=== PATIENT | female | born 1965 | race Caucasian/White ===

== ENCOUNTER → 2017-03-01 | Outpatient (REF) | payer OTHER ==
[~2017-03-01] MED LIST: CHIL1CHW5 PO; LIPI20TA PO; LISI-538 PO; LOVE1INJ SC; LOW-TAB2 PO; PERCOCET PO
== END ==
LOC: M SFHCWAGY 09:54
PROVIDERS: ATTEND Nurse Practitioner Women's Health
DX: Z12.4 Encounter for screening for malignant neoplasm of cervix (principal)

== ENCOUNTER → 2017-03-01 | Outpatient (CLI) | payer OTHER ==
--- NOTE | 2017-03-01 11:59 | REPMRS ---
Patient History The patient states she had a clinical breast exam in Patient had first child at age 31. Family history of colorectal cancer in maternal aunt at age 50 or over. Benign stereotatic breast biopsy of the right breast, 2002. Took hormonal contraceptives for 22 years. Digital Woman Screen Mammo: March 01, 2017 - Exam #: [id number] Bilateral CC and MLO view(s) were taken. Technologist: Ana Prasad, Technologist Prior study comparison: February 16, 2016, digital woman screen mammo performed at [facility]. February 10, 2015, digital woman screen mammo performed at [facility]. January 10, 2014, digital woman screen mammo performed at [facility]. FINDINGS: There are scattered fibroglandular densities. There has been no change in the appearance of the mammogram from the prior studies. There is a mild amount of scattered fibroglandular density which is fairly symmetric. There is no interval development of dominant mass, architectural distortion, or clustered microcalcification suggestive of malignancy. ASSESSMENT: BI-RADS/ACR category 1 mammogram. Negative. Recommendation Routine screening mammogram in 1 year (for women over age 40). This mammogram was interpreted with the aid of an FDA-approved computer-aided dectection system. Electronically Signed By: Rivera Jauregui MD 03/01/17 [id number]
== END ==
LOC: M WHC 09:43
PROVIDERS: ATTEND Nurse Practitioner Women's Health
DX: Z12.31 Encounter for screening mammogram for malignant neoplasm of breast (principal)

== ENCOUNTER → 2018-03-22 | Outpatient (CLI) | payer OTHER | LOC: M WHC 15:11 | DX: Z12.31 Encounter for screening mammogram for malignant neoplasm of breast (principal) | CPT/HCPCS: 77067 ==

== ENCOUNTER 2018-04-27 22:00 | Emergency (ER) | payer OTHER ==
[2018-04-27] MEDS: TETANUS IMMUNE GLOBULIN (HUMAN) 250 UNITS/ML SYRINGE (J1670)(90389) IM (23:15)
[2018-04-27] MEDS: TETANUS/DIPHTHERIA TOX ADSORB ADULT 0.5ML SYR/VIAL (90714) IM (23:15)
[2018-04-27] MEDS: LIDOCAINE W/EPINEPHRINE 1% 20ML VIAL SC (23:15)
== END 2018-04-28 00:11 | disposition home or self-care (01) ==
LOC: M ED 04-28 00:11
DX: S51.851A Open bite of right forearm, initial encounter (principal); W54.0XXA Bitten by dog, initial encounter; Y92.410 Unspecified street and highway as the place of occurrence of the external cause; I10 Essential (primary) hypertension; E78.5 Hyperlipidemia, unspecified; Z86.73 Personal history of transient ischemic attack (TIA), and cerebral infarction without residual deficits
CPT/HCPCS: 90714

== ENCOUNTER 2019-06-05 09:49 | Day surgery (SDC) | payer OTHER ==
[~2019-06-05] VITALS: Ht 172.7 cm; Wt 66.7 kg
[~2019-06-05 09:49] MED LIST changes: +ASPI-286 PO; +AUGM875T28 PO; -CHIL1CHW5 PO; +LOW-1TAB2 PO; -LOW-TAB2 PO; +LR 1,000 ML IV ONE; +SERO50TA PO; +ceFAZolin SOD 2 GM in IV 1 EA IV ONE; +effexor
[2019-06-05] MEDS ORDERED: LIDOCAINE 2% INJ 100 MG/5 ML SDV (FOR ANES.) As Ordered ONE (10:09)
[2019-06-05] MEDS ORDERED: ONDANSETRON 4MG/2ML VIAL (J2405) As Ordered ONE (10:09)
[2019-06-05] MEDS ORDERED: dexameTHASONE 4 MG/ML 1ML VIAL (J1100) As Ordered ONE (10:09)
[2019-06-05] MEDS ORDERED: PROPOFOL 200 MG/20 ML VIAL As Ordered ONE ×4 (10:09→14:18)
[2019-06-05] MEDS ORDERED: KETOROLAC 60 MG/2 ML VIAL (J1885) As Ordered ONE (10:10)
[2019-06-05] MEDS ORDERED: MIDAZOLAM INJ 2 MG/2 ML VIAL (J2250) As Ordered ONE (10:14)
[2019-06-05] MEDS ORDERED: fentaNYL 100 MCG/2 ML INJECTION (J3010) As Ordered ONE (10:14)
[2019-06-05] MEDS ORDERED: BUPIVACAINE HCL 0.5% 30 ML VIAL As Ordered ONE (12:22)
[2019-06-05] MEDS ORDERED: LIDOCAINE 1% MDV 20ML VIAL As Ordered ONE (12:22)
[2019-06-05] MEDS ORDERED: HYDR-3713 PO (13:21)
[2019-06-05 13:40] VITALS: BP 134/90
[2019-06-05] MEDS ORDERED: diphenhydrAMINE INJ 50MG/ML VIAL (J1200) As Ordered ONE (14:06)
[2019-06-05] MEDS ORDERED: METOCLOPRAMIDE INJ 10MG/2ML VIAL (J2765) IV PRN (14:15)
[2019-06-05] MEDS ORDERED: oxyCODONE 5MG TAB PO PRN (14:15)
[2019-06-05] MEDS ORDERED: LR 1,000 ML IV SCH (14:15)
[2019-06-05] MEDS ORDERED: fentaNYL 100 MCG/2 ML INJECTION (J3010) IV PRN (14:15)
[2019-06-05] MEDS ORDERED: ONDANSETRON 4MG/2ML VIAL (J2405) IV PRN (14:15)
--- NOTE | 2019-06-05 14:15 | RO ---
DATE OF PROCEDURE: 06/05/2019 PREPROCEDURE DIAGNOSIS: Right foot bunion and second metatarsal deformity. POSTPROCEDURE DIAGNOSIS: Right foot bunion and second metatarsal deformity. PROCEDURE: Right foot bunionectomy with first metatarsal osteotomy and second metatarsal shortening osteotomy. SURGEON: Dr. Lam Anderson PRIMARY SPECIAL EDUCATOR: None. ANESTHESIA: Monitored anesthesia care. Preoperative injection of 20 mL of 1:1 mixture of 1% lidocaine plain and 1/2% Marcaine plain. ESTIMATED BLOOD LOSS: Minimal. MATERIALS: Arthrex 2.5 and 3.5 headless compression screws, #3-0 and #4-0 Vicryl, #4-0 nylon. INJECTABLES: None. COMPLICATIONS: None. CONDITION: Stable. DESCRIPTION OF PROCEDURE: Kathie Miranda is a 53-year-old female who presents to [facility] with complaints of painful bunion and second toe deformity on her right foot. She presents today for surgical correction. The patient site and side were identified and marked in preoperative holding area. Consent was reviewed and obtained. All rhe risks, complications and alternatives to the procedure were explained to the patient in detail and all questions were answered. The patient was brought to the operating room and placed on the operating room in supine position. Monitored anesthesia care was delivered by the anesthesia department. Preoperative injection of 20 mL of 1:1 mixture of 1% lidocaine plain and 0.25% Marcaine plain were injected to the right foot. The right foot was prepped and draped in normal sterile fashion. A tourniquet was applied to the right ankle and inflated at 225 mmHg. A dorsal incision was drawn over the first metatarsal and carried through with #15 blade. Dissection was carried down and first metatarsal phalangeal joint capsule was identified. T capsulotomy was performed exposing the metatarsal head. Following this, a lateral release was performed releasing the lateral capsule, adductor tendons and sesamoidal ligament. McGlamry elevator was used to release the plantar structures. Following, the medial eminence was resected from the first metatarsal head using sagittal saw. Then osteotomy was performed of the metatarsal head translating it laterally. This fixated with a 3.5 headless compression screw. Remaining bone ledge was resected with sagittal saw and smoothed with a rasp. The site was irrigated with normal saline. A small wedge of capsule was removed from the medial capsule and then capsular repair was performed with #3-0 Vicryl and subcutaneous was closed with #4-0 Vicryl and skin closure with #4-0 nylon. Next attention was paid to the second toe. Dorsal incision was made over the second metatarsal phalangeal joint and carried through with #15 blade. Dissection was carried out until the joint capsule was identified. A linear capsulotomy was performed exposing the metatarsal head. The collateral ligaments were released. McGlamry elevator was used to release the plantar structures. Following this, an osteotomy was performed in the metatarsal head. Using sagittal saw, translating it approximately 4 mm. Bone wedge was resected with rongeur and smoothed with a rasp. Then this was fixated with an Arthrex 2.5 headless compression screw. The site was irrigated with normal saline. Capsular repair was performed with #3-0 Vicryl, subcutaneous closure with #4-0 Vicryl and skin closure with #4-0 nylon. Sterile dressings were applied. Tourniquet was deflated. The patient was brought to the postanesthesia care unit (PACU) with vital signs stable and neurovascular status intact. She will be partial weight bearing to the right foot. She will follow up in the office in two days.
== END 2019-06-05 14:04 | disposition home or self-care (01) ==
LOC: M SDC 09:49
PROVIDERS: ATTEND Podiatrist Foot & Ankle Surgery
DX: M21.611 Bunion of right foot (principal); M21.6X1 Other acquired deformities of right foot; I10 Essential (primary) hypertension; E78.5 Hyperlipidemia, unspecified; F41.9 Anxiety disorder, unspecified; F32.9 Major depressive disorder, single episode, unspecified; Z86.73 Personal history of transient ischemic attack (TIA), and cerebral infarction without residual deficits; Z79.82 Long term (current) use of aspirin; Z79.899 Other long term (current) drug therapy
CPT/HCPCS: 28296; 28308; 88300; 97116; C1713; J0690; J1100; J1200; J1885; J2250; J2405; J3010

== ENCOUNTER 2020-03-19 08:11 | Day surgery (SDC) | payer OTHER ==
[~2020-03-19] VITALS: Ht 165.1 cm; Wt 65.3 kg
[~2020-03-19 08:11] MED LIST changes: +HYDR-3713 PO; +LIDOCAINE 2% 100MG/5ML SDV (FOR ANES.) As Ordered ONE; -LR 1,000 ML IV ONE; +NS 1,000 ML IV ONE; -ceFAZolin SOD 2 GM in IV 1 EA IV ONE; +propofoL 200 MG/20 ML VIAL As Ordered ONE
--- NOTE | 2020-03-19 09:19 | ROOR ---
Patient Name: Kathie Miranda Procedure Date: 03/19/2020 9:04 AM Date of : 1965 Age: 54 Room: [facility] Gender: Female Note Status: Finalized Procedure: Colonoscopy Indications: Screening for colorectal malignant neoplasm Providers: Santiago Solomon Jr, MD Referring MD: Tom Castaneda MD Requesting Provider: Medicines: Propofol per Anesthesia Complications: No immediate complications. Procedure: Pre-Anesthesia Assessment: - Prior to the procedure, a History and Physical was performed, and patient medications and allergies were reviewed. The patient is competent. The risks and benefits of the procedure and the sedation options and risks were discussed with the patient. All questions were answered and informed consent was obtained. Patient identification and proposed procedure were verified by the physician and the nurse in the pre-procedure area and in the procedure room. Mental Status Examination: alert and oriented. Airway Examination: normal oropharyngeal airway and neck mobility. Respiratory Examination: clear to auscultation. CV Examination: normal. ASA Grade Assessment: II - A patient with mild systemic disease. After reviewing the risks and benefits, the patient was deemed in satisfactory condition to undergo the procedure. The anesthesia plan was to use moderate sedation / analgesia (conscious sedation). Immediately prior to administration of medications, the patient was re-assessed for adequacy to receive sedatives. The heart rate, respiratory rate, oxygen saturations, blood pressure, adequacy of pulmonary ventilation, and response to care were monitored throughout the procedure. The physical status of the patient was re-assessed after the procedure. The Colonoscope was introduced through the anus and advanced to the cecum, identified by appendiceal orifice and ileocecal valve. The colonoscopy was performed without difficulty. The patient tolerated the procedure well. The quality of the bowel preparation was adequate. Findings: The rectum, recto-sigmoid colon, sigmoid colon, descending colon, transverse colon, ascending colon, cecum, appendiceal orifice and ileocecal valve appeared normal. Non-bleeding internal hemorrhoids were found during endoscopy. The hemorrhoids were medium-sized and Grade II (internal hemorrhoids that prolapse but reduce spontaneously). Impression: - The rectum, recto-sigmoid colon, sigmoid colon, descending colon, transverse colon, ascending colon, cecum, appendiceal orifice and ileocecal valve are normal. - Non-bleeding internal hemorrhoids. - No specimens collected. Recommendation: - Repeat colonoscopy in 10 years for screening purposes. Santiago Solomon MD Santiago Solomon Jr, MD 03/19/2020 9:19:11 AM Electronically signed by Santiago Solomon Jr, MD Number of Addenda: 0 Note Initiated On: 03/19/2020 9:04 AM Estimated Blood Loss: Estimated blood loss: none.
[2020-03-19 09:40] VITALS: BP 143/91
== END 2020-03-19 09:54 | disposition home or self-care (01) ==
LOC: M OPP 08:11
PROVIDERS: ATTEND Surgery
DX: Z12.11 Encounter for screening for malignant neoplasm of colon (principal); K64.1 Second degree hemorrhoids; Z86.73 Personal history of transient ischemic attack (TIA), and cerebral infarction without residual deficits; Z79.899 Other long term (current) drug therapy; Z79.82 Long term (current) use of aspirin

== ENCOUNTER → 2022-05-13 | Outpatient (REF) | payer OTHER ==
[~2022-05-13] MED LIST changes: -ASPI-286 PO; -LIDOCAINE 2% 100MG/5ML SDV (FOR ANES.) As Ordered ONE; -LISI-538 PO; +LISI20TA33 PO; -NS 1,000 ML IV ONE; +SM C81CH2 PO; -propofoL 200 MG/20 ML VIAL As Ordered ONE
== END ==
LOC: EEVIPCON 21:02 → M LAB REF 21:02
PROVIDERS: ATTEND Internal Medicine
DX: R30.0 Dysuria (principal)

== ENCOUNTER → 2022-10-14 | Outpatient (REF) | payer OTHER | LOC: M PLALAB 10:53 | PROVIDERS: ATTEND Nurse Practitioner Family | DX: Z12.4 Encounter for screening for malignant neoplasm of cervix (principal) | CPT/HCPCS: 87624; G0123 ==

== ENCOUNTER → 2022-10-14 | Outpatient (CLI) | payer OTHER | LOC: M WHC 07:50 | PROVIDERS: ATTEND Nurse Practitioner Family | DX: Z12.31 Encounter for screening mammogram for malignant neoplasm of breast (principal) ==

== ENCOUNTER → 2022-12-15 | Outpatient (CLI) | payer OTHER | LOC: M WHC 15:18 | PROVIDERS: ATTEND Nurse Practitioner Family | DX: R10.2 Pelvic and perineal pain (principal); D25.9 Leiomyoma of uterus, unspecified ==

== ENCOUNTER → 2023-01-19 | Outpatient (REF) | payer OTHER ==
[2023-01-20 12:39] LABS: GC DNA AMPLIFICATION NEGATIVE (NEGATIVE)
== END ==
LOC: M SFHCWAGY 10:07
PROVIDERS: ATTEND Nurse Practitioner Family
DX: Z11.3 Encounter for screening for infections with a predominantly sexual mode of transmission (principal)

== ENCOUNTER → 2023-05-01 | Outpatient (CLI) | payer OTHER ==
[2023-05-01 19:32] LABS: BASO % 0.3 % (0.0-1.0); EOS # 0.1 10^3/uL (0.0-0.5); EOS % 1.3 % (0.0-3.0); HEMOGLOBIN 12.7 g/dl (12.0-15.5); LYMPH % 21.6 % (24.0-44.0); MEAN CORPUSCULAR HEMOGLOBIN 29.5 pg (27.0-33.0); MEAN CORPUSCULAR HGB CONC 32.6 g/dl (32.0-36.5); MEAN CORPUSCULAR VOLUME 90.5 fl (80.0-96.0); MONO # 0.5 10^3/uL (0.0-0.8); MONO % 5.7 % (2.0-8.0); NEUTROPHILS # 6.5 10^3/uL (1.5-8.5); NEUTROPHILS % 70.8 % (36.0-66.0); PLATELET COUNT, AUTOMATED 287 10^3/uL (150-450); RED BLOOD COUNT 4.31 10^6/uL (4.00-5.40); WHITE BLOOD COUNT 9.1 10^3/uL (4.0-10.0)
[2023-05-01 19:47] LABS: LIPASE 36 U/L (12-53)
[2023-05-01 19:49] LABS: ALBUMIN 4.2 G/DL (3.2-5.2); ALKALINE PHOSPHATASE 68 U/L (46-116); ALT/SGPT 11 U/L (7.0-40); AST/SGOT 15 U/L (<34); BILIRUBIN,TOTAL 0.3 MG/DL (0.3-1.2); BLOOD UREA NITROGEN 12 MG/DL (9-23); CALCIUM LEVEL 9.3 MG/DL (8.5-10.1); CARBON DIOXIDE LEVEL 31 MMOL/L (20-31); CHLORIDE LEVEL 102 MMOL/L (98-107); CREATININE FOR GFR 0.78 MG/DL (0.55-1.30); GLOMERULAR FILTRATION RATE > 60.0 (>51); GLUCOSE, FASTING 82 MG/DL (60-100); POTASSIUM SERUM 3.8 MMOL/L (3.5-5.1); SODIUM LEVEL 139 MMOL/L (136-145); TOTAL PROTEIN 7.9 G/DL (5.7-8.2)
== END ==
LOC: M WUC 15:48
PROVIDERS: ATTEND Student in an Organized Health Care Education/Training Program
DX: R10.10 Upper abdominal pain, unspecified (principal)

== ENCOUNTER → 2024-01-04 | Outpatient (CLI) | payer OTHER ==
[2024-01-04 11:10] LABS: APPEARANCE, URINE CLEAR (CLEAR); BACTERIA, URINE AUTO NEGATIVE (NEGATIVE); BILIRUBIN, URINE AUTO NEGATIVE (NEGATIVE); BLOOD, URINE BLOOD NEGATIVE (NEGATIVE); COLOR, URINE YELLOW (YELLOW); GLUCOSE, URINE (UA) AUTO NEGATIVE (NEGATIVE); KETONE, URINE AUTO NEGATIVE (NEGATIVE); LEUKOCYTE ESTERASE, URINE AUTO TRACE (NEGATIVE); MUCUS, URINE SMALL (NEGATIVE); NITRITE, URINE AUTO NEGATIVE (NEGATIVE); PROTEIN, URINE AUTO NEGATIVE (NEGATIVE); RBC, URINE AUTO 1 /HPF (0-3); SPECIFIC GRAVITY URINE AUTO 1.017 (1.002-1.035); SQUAMOUS EPITHELIAL CELL UR AU 0 /HPF (0-6); UROBILINOGEN, URINE AUTO 0.2 mg/dL (0.0-2.0); WBC, URINE AUTO 4 /HPF (0-3)
[2024-01-04 11:19] LABS: BASO % 0.7 % (0.0-1.0); EOS # 0.2 10^3/uL (0.0-0.5); EOS % 5.7 % (0.0-3.0); HEMATOCRIT 38.5 % (36.0-47.0); HEMOGLOBIN 12.6 g/dl (12.0-15.5); LYMPH # 1.7 10^3/uL (1.5-5.0); LYMPH % 43.4 % (24.0-44.0); MEAN CORPUSCULAR HEMOGLOBIN 29.9 pg (27.0-33.0); MEAN CORPUSCULAR HGB CONC 32.7 g/dl (32.0-36.5); MEAN CORPUSCULAR VOLUME 91.2 fl (80.0-96.0); MONO # 0.4 10^3/uL (0.0-0.8); MONO % 10.7 % (2.0-8.0); NEUTROPHILS # 1.6 10^3/uL (1.5-8.5); NEUTROPHILS % 39.5 % (36.0-66.0); PLATELET COUNT, AUTOMATED 218 10^3/uL (150-450); RED BLOOD COUNT 4.22 10^6/uL (4.00-5.40)
[2024-01-04 11:21] LABS: ALKALINE PHOSPHATASE 65 U/L (46-116); ALT/SGPT 18 U/L (7.0-40); AST/SGOT 22 U/L (<34); BILIRUBIN,TOTAL 0.6 MG/DL (0.3-1.2); BLOOD UREA NITROGEN 16 MG/DL (9-23); CALCIUM LEVEL 9.2 MG/DL (8.5-10.1); CARBON DIOXIDE LEVEL 30 MMOL/L (20-31); CHLORIDE LEVEL 104 MMOL/L (98-107); CREATININE FOR GFR 0.84 MG/DL (0.55-1.30); GLOMERULAR FILTRATION RATE > 60.0 (>51); GLUCOSE, FASTING 91 MG/DL (60-100); POTASSIUM SERUM 3.5 MMOL/L (3.5-5.1); SODIUM LEVEL 141 MMOL/L (136-145); TOTAL PROTEIN 6.8 G/DL (5.7-8.2)
[2024-01-05 23:07] LABS: TISSUE TRANSGLUTAMINASE IgA <2 U/mL (0-3); TISSUE TRANSGLUTAMINASE IgG 3 U/mL (0-5)
== END ==
LOC: M WUC 07:34
PROVIDERS: ATTEND Registered Nurse
DX: R14.0 Abdominal distension (gaseous) (principal); N39.46 Mixed incontinence

== ENCOUNTER → 2024-02-08 | Outpatient (CLI) | payer OTHER | LOC: M WHC 15:21 | PROVIDERS: ATTEND Nurse Practitioner Family | DX: Z12.31 Encounter for screening mammogram for malignant neoplasm of breast (principal); R92.323 Mammographic fibroglandular density, bilateral breasts ==

== ENCOUNTER → 2024-05-28 | Outpatient (CLI) | payer OTHER ==
[~2024-05-28] MED LIST changes: +E-Z-GAS II EFFERVESCENT PACKET (SODIUM BICARB./CITRIC ACID/SIMETHICONE) As Ordered ONE; +E-Z-HD 98% w/w 340GM SUSP BTL As Ordered ONE; +E-Z-PAQUE 96% w/w SUSP 176GM BTL As Ordered ONE
== END ==
LOC: M RAD 09:27
PROVIDERS: ATTEND Registered Nurse
DX: R10.12 Left upper quadrant pain (principal)

== ENCOUNTER → 2024-08-13 | Outpatient (CLI) | payer OTHER ==
[~2024-08-13] MED LIST changes: -E-Z-GAS II EFFERVESCENT PACKET (SODIUM BICARB./CITRIC ACID/SIMETHICONE) As Ordered ONE; -E-Z-HD 98% w/w 340GM SUSP BTL As Ordered ONE; -E-Z-PAQUE 96% w/w SUSP 176GM BTL As Ordered ONE
== END ==
LOC: M RAD 08:29
PROVIDERS: ATTEND Registered Nurse
DX: R10.12 Left upper quadrant pain (principal)

== ENCOUNTER → 2024-11-29 | Outpatient (CLI) | payer OTHER ==
[2024-11-29 14:49] LABS: BASO % 0.8 % (0.0-1.0); EOS # 0.2 10^3/uL (0.0-0.5); EOS % 5.8 % (0.0-3.0); HEMATOCRIT 39.3 % (36.0-47.0); HEMOGLOBIN 12.8 g/dl (12.0-15.5); LYMPH # 1.4 10^3/uL (1.5-5.0); LYMPH % 38.9 % (24.0-44.0); MEAN CORPUSCULAR HGB CONC 32.6 g/dl (32.0-36.5); MONO # 0.4 10^3/uL (0.0-0.8); MONO % 10.4 % (2.0-8.0); NEUTROPHILS # 1.6 10^3/uL (1.5-8.5); NEUTROPHILS % 44.1 % (36.0-66.0); PLATELET COUNT, AUTOMATED 225 10^3/uL (150-450); RED BLOOD COUNT 4.27 10^6/uL (4.00-5.40); WHITE BLOOD COUNT 3.7 10^3/uL (4.0-10.0)
[2024-11-29 15:20] LABS: LIPASE 35 U/L (12-53)
[2024-11-29 15:22] LABS: ALBUMIN 3.7 G/DL (3.2-5.2); ALKALINE PHOSPHATASE 64 U/L (35-104); ALT/SGPT 12 U/L (7.0-40); AMYLASE 66 U/L (30-118); AST/SGOT 19 U/L (<34); BILIRUBIN,TOTAL 0.7 MG/DL (0.3-1.2); BLOOD UREA NITROGEN 18 MG/DL (9-23); CALCIUM LEVEL 8.9 MG/DL (8.3-10.6); CARBON DIOXIDE LEVEL 32 MMOL/L (20-31); CHLORIDE LEVEL 105 MMOL/L (98-107); CHOLESTEROL LEVEL 212 MG/DL (<200); CHOLESTEROL RISK RATIO 2.65 (<5); CREATININE FOR GFR 0.79 MG/DL (0.55-1.30); GLOMERULAR FILTRATION RATE > 60.0 (>45); GLUCOSE, FASTING 92 MG/DL (74-106); HDL CHOLESTEROL 79.9 MG/DL (>40); LDL CHOLESTEROL 115.5 MG/DL (<100); NON-HDL-C 132.1 MG/DL; POTASSIUM SERUM 3.9 MMOL/L (3.5-5.1); SODIUM LEVEL 143 MMOL/L (136-145); TOTAL PROTEIN 6.8 G/DL (5.7-8.2); TRIGLYCERIDES LEVEL 83 MG/DL (<150)
== END ==
LOC: M WUC 08:09
PROVIDERS: ATTEND Registered Nurse
DX: R10.12 Left upper quadrant pain (principal)

== ENCOUNTER → 2024-12-17 | Outpatient (CLI) | payer OTHER ==
[~2024-12-17] MED LIST changes: +ISOVUE-370 76% 100ML VIAL As Ordered ONE
== END ==
LOC: M RAD 15:46
PROVIDERS: ATTEND Surgery
DX: R10.13 Epigastric pain (principal)

== ENCOUNTER 2025-08-10 20:52 | Emergency (ER) | payer OTHER ==
[~2025-08-10] VITALS: Ht 172.7 cm; Wt 66.6 kg
[~2025-08-10 20:52] MED LIST changes: +IBUP80TA PO; -ISOVUE-370 76% 100ML VIAL As Ordered ONE
[2025-08-11] MEDS: traMADol 50 MG TAB (HOME DOSE PACK) PO ONE (00:57)
[2025-08-11 00:59] VITALS: BP 168/82; TEMP 98.6; O2SAT 100
== END 2025-08-11 01:01 | disposition home or self-care (01) ==
LOC: M ED 20:52
DX: S52.322A Displaced transverse fracture of shaft of left radius, initial encounter for closed fracture (principal); S52.612A Displaced fracture of left ulna styloid process, initial encounter for closed fracture; W00.0XXA Fall on same level due to ice and snow, initial encounter; E78.5 Hyperlipidemia, unspecified; Y92.009 Unspecified place in unspecified non-institutional (private) residence as the place of occurrence of the external cause; Y93.H1 Activity, digging, shoveling and raking; Y99.9 Unspecified external cause status; Z79.1 Long term (current) use of non-steroidal anti-inflammatories (NSAID)

== ENCOUNTER → 2025-08-12 | Outpatient (CLI) | payer OTHER | LOC: M WHC 14:47 | PROVIDERS: ATTEND Nurse Practitioner Family | DX: Z12.31 Encounter for screening mammogram for malignant neoplasm of breast (principal); R92.323 Mammographic fibroglandular density, bilateral breasts ==